=== PATIENT | female | born 1960 | race Caucasian/White ===

== ENCOUNTER 2017-02-23 07:00 | Day surgery (SDC) | payer BC ==
[~2017-02-23] VITALS: Ht 160 cm; Wt 52.7 kg
[~2017-02-23 07:00] MED LIST: ALPH200C PO; ERLO25TA PO; METF500T4 PO; SODIUM CHLORIDE 0.9% 1,000 ML IV ONE
[2017-02-23] MEDS ORDERED: FentaNYL CITRATE-PF 100 MCG/2 ML VIAL IVP ONE (07:01)
[2017-02-23] MEDS ORDERED: LIDOCAINE HCL/PF 2% 5 ML VIAL IM ONE (07:01)
[2017-02-23] MEDS ORDERED: MIDAZOLAM HCL 2 MG/2 ML VIAL IVP ONE (07:01)
[2017-02-23] MEDS ORDERED: SUCCINYLCHOLINE CHLORIDE 20 MG/ML 10 ML VIAL IVP ONE (07:01)
[2017-02-23] MEDS ORDERED: PROPOFOL 1% 20 ML VIAL IVP ONE (07:01)
[2017-02-23] MEDS ORDERED: EPHEDrine SULFATE 50 MG/ML VIAL IM ONE (07:01)
[2017-02-23 07:30] LABS: BASOPHILS # (AUTO) 0.03 K/uL (0.00-0.20); BASOPHILS % (AUTO) 0.4 % (0.0-2.0); EOSINOPHILS # (AUTO) 0.26 K/uL (0.00-0.70); EOSINOPHILS % (AUTO) 3.33 % (1.0-6.0); HEMATOCRIT 34.1 % (36-46); HEMOGLOBIN 11.1 g/dL (12.0-16.0); LYMPHOCYTES # (AUTO) 0.8 K/uL (1.0-4.8); LYMPHOCYTES % (AUTO) 9.7 % (22.0-44.0); MEAN CORPUSCULAR HEMOGLOBIN 29.2 pg (26.0-34.0); MEAN CORPUSCULAR HGB CONC 32.6 G/dL (31.0-37.0); MEAN CORPUSCULAR VOLUME 90 fL (80-100); MONOCYTES # (AUTO) 0.6 K/uL (0.1-1.0); NEUTROPHILS # (AUTO) 6.2 K/uL (1.8-7.7); NEUTROPHILS % (AUTO) 78.6 % (40.0-70.0); PLATELET COUNT (AUTO) 279 K/uL (150-450); RED CELL DISTRIBUTION WIDTH 16.5 % (11.5-14.5)
[2017-02-23] MEDS ORDERED: LORazepam 2 MG/ML VIAL IVP PRN (07:30)
[2017-02-23] MEDS ORDERED: CeFAZolin 1 GM/DEXTROSE 50 ML IV ONE (07:30)
[2017-02-23] MEDS ORDERED: SODIUM CHLORIDE 0.9% 1,000 ML IV ONE (07:30)
[2017-02-23] MEDS ORDERED: LIDOCAINE HCL/PF 1% 30 ML VIAL ONE (07:42)
[2017-02-23] MEDS ORDERED: SODIUM CHLORIDE 0.9% 1,000 ML IV SCH (10:28)
[2017-02-23] MEDS ORDERED: HYDROmorphone 2 MG/ML SYRINGE IM ONE ×2 (10:30→12:15)
[2017-02-23] MEDS ORDERED: HYDROmorphone 2 MG/ML SYRINGE ONE (10:51)
== END 2017-02-23 14:10 | disposition home or self-care (01) ==
LOC: SURGERY 07:00 → EDSTATUS 07:30 → SURGERY 14:10
PROVIDERS: ATTEND Radiology Diagnostic Radiology
DX: C79.51 Secondary malignant neoplasm of bone (principal); C79.31 Secondary malignant neoplasm of brain; C34.90 Malignant neoplasm of unspecified part of unspecified bronchus or lung; E11.9 Type 2 diabetes mellitus without complications; Z88.8 Allergy status to other drugs, medicaments and biological substances; Z96.649 Presence of unspecified artificial hip joint
CPT/HCPCS: 20983; 36415; 85025; C2618; J0330; J0690; J1170; J2250; J2704; J3010; J3490 ×3; J7030

== ENCOUNTER 2017-02-23 14:51 | Emergency (ER) | payer BC ==
[~2017-02-23] VITALS: Ht 160 cm; Wt 52.5 kg
[~2017-02-23 14:51] MED LIST changes: -SODIUM CHLORIDE 0.9% 1,000 ML IV ONE
[2017-02-23 15:17] LABS: GLUCOSE,POINT OF CARE 111 MG/DL (70-110)
[2017-02-23 16:24] VITALS: BP 128/80
== END 2017-02-23 16:37 | disposition home or self-care (01) ==
LOC: EMS 14:52
DX: M89.9 Disorder of bone, unspecified (principal); E11.9 Type 2 diabetes mellitus without complications; Z88.5 Allergy status to narcotic agent; Z88.8 Allergy status to other drugs, medicaments and biological substances
CPT/HCPCS: 82962; 99282

== ENCOUNTER → 2017-03-01 | Outpatient (CLI) | payer OTHER ==
[~2017-03-01] MED LIST changes: +GADOBUTROL 1 MMOL/ML 10 ML VIAL IVP ONE
[2017-03-01 11:54] LABS: ANION GAP 5 mmol/L (8-16); CARBON DIOXIDE 30 mmol/L (22-29); CHLORIDE 103 mmol/L (98-107); CREATININE 0.43 mg/dL (0.60-1.30); GLOMERULAR FILTR. RATE CALC > 60 mL/min (>60); POTASSIUM 4.1 mmol/L (3.5-5.1); SODIUM SERUM 138 mmol/L (136-145); UREA NITROGEN, BLOOD 6 mg/dL (7-18)
[2017-03-01 12:00] LABS: ALANINE AMINOTRANSFERASE 24 U/L (12-78); ALBUMIN 3.3 g/dL (3.4-5.0); ASPARTATE AMINOTRANSFERASE 20 U/L (15-37); BILIRUBIN,TOTAL 0.5 mg/dL (0.1-1.0); TOTAL PROTEIN, SERUM 6.8 g/dL (6.4-8.2)
== END | disposition home or self-care (01) ==
LOC: RADMN 09:36
PROVIDERS: ATTEND Radiology Diagnostic Radiology
DX: M84.48XA Pathological fracture, other site, initial encounter for fracture (principal); M48.04 Spinal stenosis, thoracic region; Z98.890 Other specified postprocedural states
CPT/HCPCS: 36415; 72157; 80053; A9585

== ENCOUNTER 2017-06-30 06:05 | Day surgery (SDC) | payer BC, OTHER ==
[~2017-06-30] VITALS: Ht 157.5 cm; Wt 51.4 kg
[~2017-06-30 06:05] MED LIST changes: -GADOBUTROL 1 MMOL/ML 10 ML VIAL IVP ONE; +SODIUM CHLORIDE 0.9% 1,000 ML IV ONE
[2017-06-30] MEDS ORDERED: MIDAZOLAM HCL 2 MG/2 ML VIAL IVP ONE (06:06)
[2017-06-30] MEDS ORDERED: PROPOFOL 1% 20 ML VIAL IVP ONE (06:06)
[2017-06-30] MEDS ORDERED: LIDOCAINE HCL/PF 2% 5 ML VIAL IM ONE (06:06)
[2017-06-30] MEDS ORDERED: FentaNYL CITRATE-PF 100 MCG/2 ML VIAL IVP ONE (06:06)
[2017-06-30] MEDS ORDERED: SODIUM CHLORIDE 0.9% 1,000 ML IV ONE (06:19)
[2017-06-30] MEDS ORDERED: CeFAZolin 1 GM/DEXTROSE 50 ML IV ONE ×2 (06:20→07:00)
[2017-06-30] MEDS ORDERED: HYDR-305 PO (06:35)
[2017-06-30] MEDS ORDERED: OXYC10 PO (06:35)
[2017-06-30] MEDS ORDERED: LORazepam 2 MG/ML VIAL IVP PRN (07:00)
[2017-06-30 07:10] LABS: BASOPHILS # (AUTO) 0.03 K/uL (0.00-0.20); BASOPHILS % (AUTO) 0.4 % (0.0-2.0); EOSINOPHILS # (AUTO) 0.22 K/uL (0.00-0.70); EOSINOPHILS % (AUTO) 2.98 % (1.0-6.0); HEMATOCRIT 31.3 % (36-46); HEMOGLOBIN 10.1 g/dL (12.0-16.0); LYMPHOCYTES # (AUTO) 0.7 K/uL (1.0-4.8); LYMPHOCYTES % (AUTO) 9.3 % (22.0-44.0); MEAN CORPUSCULAR HEMOGLOBIN 29.3 pg (26.0-34.0); MEAN CORPUSCULAR HGB CONC 32.2 G/dL (31.0-37.0); MEAN CORPUSCULAR VOLUME 91 fL (80-100); MONOCYTES # (AUTO) 0.7 K/uL (0.1-1.0); MONOCYTES % (AUTO) 9.7 % (2.0-9.0); NEUTROPHILS # (AUTO) 5.7 K/uL (1.8-7.7); NEUTROPHILS % (AUTO) 77.6 % (40.0-70.0); PLATELET COUNT (AUTO) 257 K/uL (150-450); RED BLOOD CELL COUNT(AUTO) 3.44 MIL/uL (4.00-5.20); RED CELL DISTRIBUTION WIDTH 14.9 % (11.5-14.5)
[2017-06-30] MEDS ORDERED: 0.9% SODIUM CHLORIDE 10 ML SYRINGE IVP ONE ×2 (07:11→12:09)
[2017-06-30] MEDS ORDERED: ALTEPLASE 2 MG/VIAL IVCATH ONE (07:15)
[2017-06-30] MEDS ORDERED: LIDOCAINE HCL/PF 1% 30 ML VIAL ONE (07:16)
[2017-06-30 07:21] LABS: ANION GAP 6 mmol/L (8-16); CALCIUM, TOTAL 8.4 mg/dL (8.8-10.5); CARBON DIOXIDE 29 mmol/L (22-29); CHLORIDE 102 mmol/L (98-107); CREATININE 0.47 mg/dL (0.60-1.30); GLOMERULAR FILTR. RATE CALC > 60 mL/min (>60); GLUCOSE,RANDOM 139 mg/dL (70-110); POTASSIUM 3.9 mmol/L (3.5-5.1); SODIUM SERUM 137 mmol/L (136-145); UREA NITROGEN, BLOOD 16 mg/dL (7-18)
[2017-06-30 07:27] LABS: ALANINE AMINOTRANSFERASE 24 U/L (12-78); ALBUMIN 3.4 g/dL (3.4-5.0); ALKALINE PHOSPHATASE 237 U/L (46-116); ASPARTATE AMINOTRANSFERASE 22 U/L (15-37); BILIRUBIN,TOTAL 0.3 mg/dL (0.1-1.0); TOTAL PROTEIN, SERUM 6.9 g/dL (6.4-8.2)
[2017-06-30] MEDS ORDERED: INSULIN REGULAR, HUMAN 100 UNITS/ML IVP ONE (08:00)
[2017-06-30] MEDS ORDERED: AFAT20TA PO (09:10)
[2017-06-30] MEDS ORDERED: RANI150T7 PO (09:16)
[2017-06-30] MEDS ORDERED: MIRALAX PO (09:16)
[2017-06-30] MEDS ORDERED: METO-296 PO (09:16)
[2017-06-30] MEDS ORDERED: VITA-328 PO (09:16)
[2017-06-30] MEDS ORDERED: RIVA20TA PO (09:16)
[2017-06-30] MEDS ORDERED: PREG25 PO (09:16)
[2017-06-30] MEDS ORDERED: MIRT15 PO (09:16)
[2017-06-30] MEDS ORDERED: ASCO500C6 PO (09:16)
[2017-06-30] MEDS ORDERED: METF500T4 PO (09:16)
[2017-06-30] MEDS ORDERED: ALPH100C PO (09:16)
[2017-06-30] MEDS ORDERED: ALPR0.255 PO (09:16)
[2017-06-30] MEDS ORDERED: CHOL200016 PO (09:16)
[2017-06-30] MEDS ORDERED: ONDA4TAB9 PO (09:16)
[2017-06-30] MEDS: HYDROmorphone 2 MG/ML SYRINGE IVP PRN ×3 (10:18→10:28)
[2017-06-30] MEDS ORDERED: SODIUM CHLORIDE 0.9% 1,000 ML IV SCH (10:26)
[2017-06-30] MEDS ORDERED: HYDROmorphone 2 MG/ML SYRINGE IVP PRN (10:30)
[2017-06-30] MEDS ORDERED: OxyCODONE HCL/ACETAMINOPHEN 5-325 MG TABLET PO PRN (10:30)
[2017-06-30] MEDS ORDERED: HYDROmorphone 2 MG/ML SYRINGE ONE (10:33)
[2017-06-30] MEDS ORDERED: MORPHINE SULFATE 2 MG/ML SYRINGE IVP ONE (10:45)
[2017-06-30] MEDS ORDERED: MORPHINE SULFATE 2 MG/ML SYRINGE ONE (10:48)
[2017-06-30] MEDS ORDERED: OxyCODONE HCL/ACETAMINOPHEN 5-325 MG TABLET ONE (11:24)
== END 2017-06-30 12:25 | disposition home or self-care (01) ==
LOC: SURGERY 06:05 → EDSTATUS 07:30 → SURGERY 12:25
PROVIDERS: ATTEND Radiology Diagnostic Radiology
DX: C79.51 Secondary malignant neoplasm of bone (principal); C79.89 Secondary malignant neoplasm of other specified sites; E11.9 Type 2 diabetes mellitus without complications; E43 Unspecified severe protein-calorie malnutrition; F32.9 Major depressive disorder, single episode, unspecified; G89.29 Other chronic pain; Z85.118 Personal history of other malignant neoplasm of bronchus and lung; Z85.820 Personal history of malignant melanoma of skin; Z88.5 Allergy status to narcotic agent; Z79.84 Long term (current) use of oral hypoglycemic drugs; Z98.890 Other specified postprocedural states; Z88.6 Allergy status to analgesic agent; Z96.641 Presence of right artificial hip joint; Z88.8 Allergy status to other drugs, medicaments and biological substances; Z79.899 Other long term (current) drug therapy
CPT/HCPCS: 20983; 36415; 71250; 72192; 74150; 80053; 83036; 85025; 99152; 99153; C2618; J0690; J1170; J2250; J2270; J2704; J2997; J3010; J3490 ×2; J7030